=== PATIENT | male | born 2000 | race Two or more races ===

== ENCOUNTER → 2023-02-28 | Emergency (ER) | payer MEDICAID ==
[~2023-02-28] VITALS: Ht 170.2 cm; Wt 81.6 kg
[2023-02-28 19:42] VITALS: BP 118/65
--- NOTE | 2023-02-28 19:42 | NUR ---
[id number] CC FOUND ON SIDEWALK POST INGESTION OF APPROX 0.25G OF [place]. SEEN BY PROVIDER. WANTED TO LEAVE AMA UPON ARRIVAL, AAOX4, AMBULATORY, IN NAD, VSS. APPROPRIATE FORM SIGNED FOR LEAVING AMA.
== END | disposition left against medical advice (07) ==
LOC: ER 19:37
DX: T40.411A Poisoning by fentanyl or fentanyl analogs, accidental (unintentional), initial encounter (principal); Y92.480 Sidewalk as the place of occurrence of the external cause

== ENCOUNTER 2024-01-14 04:14 | Emergency (ER) | payer MEDICAID ==
[~2024-01-14] VITALS: Ht 175.3 cm; Wt 81.6 kg
[2024-01-14 04:17] VITALS: BP 112/61; TEMP 97.9; O2SAT 100
== END 2024-01-14 04:41 | disposition home or self-care (01) ==
LOC: ER 04:15
DX: F11.20 Opioid dependence, uncomplicated (principal); Z88.8 Allergy status to other drugs, medicaments and biological substances

== ENCOUNTER 2024-04-03 16:03 | Emergency (ER) | payer MEDICAID, OTHER ==
[~2024-04-03] VITALS: Ht 170.2 cm; Wt 89.8 kg
[2024-04-03 17:21] LABS: BASOPHILS % (AUTO) 0.4 % (0.0-2.0); HEMATOCRIT 40 % (39-51); HEMOGLOBIN 13.3 g/dL (13.5-17.5); LYMPHOCYTES # (AUTO) 1.5 K/uL (0.8-4.8); LYMPHOCYTES % (AUTO) 19.9 % (20.0-44.0); MEAN CORPUSCULAR HEMOGLOBIN 28 PG (26.0-33.0); MEAN CORPUSCULAR HGB CONC 34 g/dl (31.0-36.0); MEAN CORPUSCULAR VOLUME 82 fL (80-96); MONOCYTES # (AUTO) 0.5 K/uL (0.1-1.30); MONOCYTES % (AUTO) 6.9 % (2.0-12.0); NEUTROPHILS # (AUTO) 5.4 K/uL (1.8-8.9); NEUTROPHILS % (AUTO) 72.8 % (43.0-81.0); PLATELET COUNT (AUTO) 263 K/uL (150-450); RED BLOOD CELL COUNT(AUTO) 4.83 MIL/uL (4.5-6.0); RED CELL DISTRIBUTION WIDTH 13.1 % (11.5-15.0); WHITE BLOOD COUNT (AUTO) 7.4 K/uL (4.3-11.0)
[2024-04-03 17:58] LABS: CALCIUM, SERUM 9.7 mg/dL (8.5-10.1); CARBON DIOXIDE 29 mmol/L (21-32); CHLORIDE 105 mmol/L (98-107); GLUCOSE 102 mg/dL (74-106); POTASSIUM 4.1 mmol/L (3.5-5.1); SODIUM SERUM 139 mmol/L (136-145); UREA NITROGEN, BLOOD 12 mg/dL (7-18)
[2024-04-03 18:15] LABS: ACETAMINOPHEN <10 ug/ml (10-30); ALANINE AMINOTRANSFERASE 28 U/L (12-78); ALBUMIN 3.6 g/dL (3.4-5.0); ALCOHOL, BLOOD < 3 mg/dL (0-10); ALKALINE PHOSPHATASE 72 U/L (46-116); ASPARTATE AMINOTRANSFERASE 14 U/L (15-37); BILIRUBIN,DIRECT 0.1 mg/dL (0.0-0.2); BILIRUBIN,TOTAL 0.3 mg/dL (0.2-1.0); SALICYLATE 3.9 mg/dL (2.8-20.0); TOTAL PROTEIN, SERUM 7.2 g/dL (6.4-8.2)
[2024-04-03] MEDS ORDERED: KETOROLAC TROMETHAMINE INJ 30 MG/ML VIAL ONE (18:49)
[2024-04-03] MEDS: KETOROLAC TROMETHAMINE INJ 30 MG/ML VIAL IV ONE (18:53)
[2024-04-03 18:54] VITALS: BP 125/72; TEMP 98; O2SAT 99
== END 2024-04-03 18:54 | disposition home or self-care (01) ==
LOC: ER 16:05
DX: K59.00 Constipation, unspecified (principal); R11.0 Nausea; F19.10 Other psychoactive substance abuse, uncomplicated; Z88.8 Allergy status to other drugs, medicaments and biological substances; Z03.821 Encounter for observation for suspected ingested foreign body ruled out
CPT/HCPCS: 99285; 96374; 71250; 74176; 85025; 80048; 80076; 36415; 80143; 80320; J1885; G0480

== ENCOUNTER 2024-04-12 09:45 | Emergency (ER) | payer MEDICAID, OTHER ==
[~2024-04-12] VITALS: Ht 170.2 cm; Wt 90.7 kg
[2024-04-12] MEDS ORDERED: IBUP-1953 PO (10:27)
[2024-04-12] MEDS ORDERED: LORA-815 PO (10:27)
[2024-04-12] MEDS ORDERED: AMOX-430 PO (10:27)
[2024-04-12 10:33] VITALS: BP 120/75; TEMP 98.3; O2SAT 100
== END 2024-04-12 10:33 | disposition home or self-care (01) ==
LOC: ER 10:25
DX: H66.92 Otitis media, unspecified, left ear (principal); F19.10 Other psychoactive substance abuse, uncomplicated; Z88.8 Allergy status to other drugs, medicaments and biological substances

== ENCOUNTER 2024-08-02 23:21 | Emergency (ER) | payer MEDICAID ==
[~2024-08-02] VITALS: Ht 170.2 cm; Wt 83.9 kg
[~2024-08-02 23:21] MED LIST: AMOX-430 PO; IBUP-1953 PO; LORA-815 PO
[2024-08-03 01:14] VITALS: TEMP 98.7
[2024-08-03 01:26] LABS: BASOPHILS % (AUTO) 0.3 % (0.0-2.0); EOSINOPHILS % (AUTO) 0.2 % (0.0-6.0); HEMATOCRIT 43 % (39-51); LYMPHOCYTES # (AUTO) 0.8 K/uL (0.8-4.8); LYMPHOCYTES % (AUTO) 12.6 % (20.0-44.0); MEAN CORPUSCULAR HEMOGLOBIN 27 PG (26.0-33.0); MEAN CORPUSCULAR HGB CONC 33 g/dl (31.0-36.0); MEAN CORPUSCULAR VOLUME 82 fL (80-96); MONOCYTES # (AUTO) 0.3 K/uL (0.1-1.30); MONOCYTES % (AUTO) 5.3 % (2.0-12.0); NEUTROPHILS # (AUTO) 5.4 K/uL (1.8-8.9); NEUTROPHILS % (AUTO) 81.6 % (43.0-81.0); PLATELET COUNT (AUTO) 267 K/uL (150-450); RED BLOOD CELL COUNT(AUTO) 5.23 MIL/uL (4.5-6.0); RED CELL DISTRIBUTION WIDTH 13.1 % (11.5-15.0); WHITE BLOOD COUNT (AUTO) 6.6 K/uL (4.3-11.0)
[2024-08-03 01:40] LABS: ALANINE AMINOTRANSFERASE 20 U/L (12-78); ALBUMIN 3.7 g/dL (3.4-5.0); ALCOHOL, BLOOD < 3 mg/dL (0-10); ALKALINE PHOSPHATASE 94 U/L (46-116); ASPARTATE AMINOTRANSFERASE 8 U/L (15-37); BILIRUBIN,TOTAL 0.4 mg/dL (0.2-1.0); CALCIUM, SERUM 9.4 mg/dL (8.5-10.1); CARBON DIOXIDE 28 mmol/L (21-32); CHLORIDE 102 mmol/L (98-107); CREATININE 0.7 mg/dL (0.6-1.3); GLUCOSE 115 mg/dL (74-106); POTASSIUM 4.4 mmol/L (3.5-5.1); SODIUM SERUM 139 mmol/L (136-145); TOTAL PROTEIN, SERUM 7.7 g/dL (6.4-8.2); UREA NITROGEN, BLOOD 7 mg/dL (7-18)
[2024-08-03] MEDS ORDERED: KETO10TA2 PO (02:09)
[2024-08-03] MEDS ORDERED: KETOROLAC TROMETHAMINE INJ 30 MG/ML VIAL ONE (02:14)
[2024-08-03] MEDS: KETOROLAC TROMETHAMINE INJ 60 MG/2 ML VIAL IM ONE (02:19)
[2024-08-03 02:33] VITALS: BP 119/72; O2SAT 98
== END 2024-08-03 02:33 | disposition home or self-care (01) ==
LOC: ER 23:26
DX: R51.9 Headache, unspecified (principal); R11.0 Nausea; F19.10 Other psychoactive substance abuse, uncomplicated; Z88.8 Allergy status to other drugs, medicaments and biological substances
CPT/HCPCS: 99285; 96372; 70450; 85025; 36415; 80053; 80320; J1885; G0480